=== PATIENT | male | born 2000 | race Caucasian/White ===

== ENCOUNTER 2018-01-05 21:21 | Emergency (ER) | payer SELFPAY ==
[2018-01-05 21:29] VITALS: BP 138/91
[2018-01-05] MEDS ORDERED: CEPHALEXIN 500 MG CAPSULE PO ONE (22:09)
[2018-01-05] MEDS ORDERED: IBUPROFEN 600 MG TABLET PO ONE (22:09)
[2018-01-05] MEDS ORDERED: SULFAMETHOXAZOLE/TRIMETHOPRIM 800-160 MG TABLET PO ONE (22:09)
--- NOTE | 2018-01-05 22:14 | ER Document Report ---
ED General - General Chief Complaint: Insect Bite Stated Complaint: INSECT BITE Time Seen by Provider: 01/05/18 21:56 TRAVEL OUTSIDE OF THE [place] IN LAST 30 DAYS: No - HPI Notes: Patient is a 17-year-old male that presents to the emergency department for chief complaint of abscess. Patient noticed increased pain and redness over his left thigh 3 days ago. He states yesterday he cut it open with a razor blade and had pus drained out. He states the pain has continued which is why he came to the emergency room. He denies any injection into the area. He denies any history of abscess in the past. He denies seeing any insect bite him. He states it is a sharp pain that is worse with palpation. He denies relieving factors. He has not taken medicine at home for pain. Past Medical History: Negative Past Surgical History: Negative Social History: Occasional marijuana. Denies tobacco and alcohol Family History: Reviewed and noncontributory for presenting illness Allergies: Reviewed, see documented allergy list. REVIEW OF SYSTEMS: CONSTITUTIONAL : No fever No chills No diaphoresis No recent illness EENT: No vision changes No congestion No sore throat CARDIOVASCULAR: No chest pain No palpitations RESPIRATORY: No shortness of breath No cough No difficulty breathing GASTROINTESTINAL: No abdominal pain No nausea No vomiting No diarrhea GENITOURINARY: No dysuria No hematuria No difficulty urinating MUSCULOSKELETAL: No back pain No leg pain No arm pain SKIN: No rashes Left thigh lesions LYMPHATIC: No swollen, enlarged glands. NEUROLOGICAL: No lightheadedness No headache No weakness No paresthesias PSYCHIATRIC: No anxiety No depression PHYSICAL EXAMINATION: Vital signs reviewed, nursing noted reviewed. GENERAL: Well-appearing, well-nourished and in no acute distress. HEAD: Atraumatic, normocephalic. EYES: Eyes appear normal, extraocular movements intact, sclera anicteric, conjunctiva are normal. ENT: nares patent, oropharynx clear without exudates. Moist mucous membranes. NECK: Normal range of motion, supple without lymphadenopathy LUNGS: Breath sounds clear to auscultation bilaterally and equal. No wheezes rales or rhonchi. HEART: Regular rate and rhythm without murmurs ABDOMEN: Soft, nontender, normoactive bowel sounds. No rebound, guarding, or rigidity. No masses appreciated. EXTREMITIES: Nontender, good range of motion, no pitting or edema. NEUROLOGICAL: No focal neurological deficits. Moves all extremities spontaneously Motor and sensory grossly intact on exam. PSYCH: Normal mood, normal affect. SKIN: Warm, Dry, normal turgor. Erythema and induration measuring 2.0 x 2.0 cm to distal anterior left thigh just proximal to patella with overlying scab, tender to palpation, no fluctuance - Related Data Allergies/Adverse Reactions: No Known Allergies Allergy (Unverified 01/05/18 21:24) Past Medical History - Social History Smoking Status: Unknown if Ever Smoked Frequency of alcohol use: None Drug Abuse: Marijuana Family History: Reviewed & Not Pertinent Patient has suicidal ideation: No Patient has homicidal ideation: No Renal/ Medical History: Denies: Hx Peritoneal Dialysis Review of Systems - Review of Systems Notes: Dictated Physical Exam - Vital signs Vitals: Temp Pulse Resp BP Pulse Ox 98.6 F 78 18 138/91 H 99 01/05/18 21:28 01/05/18 21:28 01/05/18 21:28 01/05/18 21:28 01/05/18 21:28 - Notes Notes: Dictated Course - Re-evaluation Re-evalutation: 01/05/18 22:12 Vitals reviewed. Nursing notes reviewed. Patient has an abscess on his distal left thigh. He lanced the abscess yesterday and there is no area of fluctuance requiring further incision and drainage. He will be started on Bactrim and Keflex for the surrounding cellulitis. Patient told to return if the area seems to have a fluid collection returning. He will follow with primary care for reevaluation if symptoms are improving. Discharged in stable condition. - Vital Signs Vital signs: Temp Pulse Resp BP Pulse Ox 98.6 F 78 18 138/91 H 99 01/05/18 21:28 01/05/18 21:28 01/05/18 21:28 01/05/18 21:28 01/05/18 21:28 Discharge - Discharge Clinical Impression: Cellulitis of left thigh, Abscess of left thigh Condition: Stable Disposition: HOME, SELF-CARE Instructions: Abscess ([facility]), Trimethoprim-Sulfa ([facility]), Cephalexin ([facility]), Family Physicians / Practices Additional Instructions: Please return to the emergency department if you have any worsening, or concern of your symptoms. Please return to the emergency department if you develop chest pain, difficulty breathing, severe abdominal pain, or ongoing vomiting. Please follow-up with your primary care physician in 2-3 days and any other recommended physicians. If prescribed, take all medications as directed. If you have any questions or concerns do not hesitate to return the emergency department for evaluation. [] Prescriptions: Cephalexin Monohydrate [Keflex 500 mg Capsule] 500 mg PO Q6H 7 Days capsule Sulfamethoxazole/Trimethoprim [Bactrim Ds Tablet] 1 each PO BID #7 tablet
== END 2018-01-05 22:58 | disposition home or self-care (01) ==
LOC: ER 21:21
DX: L02.416 Cutaneous abscess of left lower limb (principal); L03.116 Cellulitis of left lower limb; F12.10 Cannabis abuse, uncomplicated
CPT/HCPCS: 99283